=== PATIENT | male | born 1960 | race Caucasian/White ===

== ENCOUNTER 2018-01-01 18:53 | Emergency (ER) | payer OTHER ==
[~2018-01-01] VITALS: Ht 193 cm; Wt 108.0 kg
[2018-01-01] MEDS ORDERED: NORCO (19:16)
[2018-01-01] MEDS ORDERED: MIRALAX (19:16)
[2018-01-01] MEDS ORDERED: COLACE (19:16)
[2018-01-01] MEDS ORDERED: HYDR25TA6 PO (19:16)
[2018-01-01] MEDS ORDERED: LISI-167 PO (19:16)
[2018-01-01 19:49] LABS: BASOPHILS # (AUTO) 0.07 x10^3/uL (0-0.1); BASOPHILS % (AUTO) 1 % (0-1); EOSINOPHILS # (AUTO) 0.03 x10^3/uL (0-0.4); EOSINOPHILS % (AUTO) 0 % (1-7); LYMPHOCYTES # (AUTO) 0.73 x10^3/uL (1-3.4); LYMPHOCYTES % (AUTO) 8 % (22-44); MD NO; MEAN CORPUSCULAR HEMOGLOBIN 34.7 pg (27.5-34.5); MEAN CORPUSCULAR HGB CONC 35.1 g/dL (33.2-36.2); MEAN CORPUSCULAR VOLUME 98.7 fL (81-97); MEAN PLATELET VOLUME 8.5 fL (7.4-10.4); MONOCYTES # (AUTO) 0.94 x10^3/uL (0.2-0.8); MONOCYTES % (AUTO) 10 % (2-9); NEUTROPHILS # (AUTO) 7.93 x10^3/uL (1.8-6.8); NEUTROPHILS % (AUTO) 82 % (42-75); PLATELET COUNT 166 x10^3/uL (130-400); RED BLOOD COUNT 3.02 x10^6/uL (4.38-5.82); RED CELL DISTRIBUTION WIDTH 12.7 % (9.4-14.8)
[2018-01-01 20:00] LABS: ANION GAP 7 mmol/L (5-15); CALCIUM 7.6 mg/dL (8.5-10.1); CHLORIDE 96 mmol/L (98-107)
[2018-01-01 20:05] LABS: CREATININE 1.22 mg/dL (0.7-1.3); TROPONIN I < 0.015 ng/mL (0.000-0.045)
[2018-01-01] MEDS ORDERED: HYDROcodone/APAP 5/325 TABLET ONE (20:13)
[2018-01-01 20:15] VITALS: BP 126/71
[2018-01-01] MEDS ORDERED: IBUPROFEN 200 MG TABLET ONE (20:23)
[2018-01-01] MEDS ORDERED: HYDROcodone/APAP 5/325 TABLET PO ONE (20:30)
[2018-01-01] MEDS ORDERED: IBUPROFEN 200 MG TABLET PO ONE (20:30)
== END 2018-01-01 20:54 | disposition home or self-care (01) ==
LOC: ED 20:10
DX: R55 Syncope and collapse (principal)
CPT/HCPCS: 36415; 71045; 80048; 82040; 83880; 84484; 85025; 93005; 99285